=== PATIENT | male | born 1950 | race Hispanic/Latino ===

== ENCOUNTER 2016-08-10 07:58 | Emergency (ER) | payer MEDICARE ==
--- NOTE | 2016-08-10 09:10 | XRay Report ---
RIB RADIOGRAPHS WITH CHEST VIEW INDICATION: Pain, status post fall. COMPARISON: None similar at this institution. FINDINGS: Frontal chest as also AP and oblique radiographs to evaluate left ribs, 4 projections demonstrate normal cardiomediastinal silhouette. Clear lungs without effusions, CHF or pneumothorax. Possibly postsurgical right distal clavicular resection/absence with approximately 1.9 cm acromioclavicular gap. Moderate multilevel thoracic spine degenerative changes, including spurring, disc degeneration and mild scoliosis. Partially imaged lumbar bilateral pedicle rods and screws. Probable cholecystectomy clips. Osteopenia. Specifically, no definite or significantly displaced left rib fracture identified. CONCLUSION: No acute left rib or chest radiographic abnormality with various other findings, as described. Please note that some acute rib fractures may be radiographically occult. Thank you for the opportunity to participate in this patient's care.
[2016-08-10] MEDS ORDERED: TYLENOL PO ONE (09:15)
--- NOTE | 2016-08-10 09:51 | Emergency Department Report ---
ED General Adult HPI - General Chief complaint: Fall Stated complaint: POSS BROKEN RIBS Time Seen by Provider: 08/10/16 09:04 Source: patient Mode of arrival: Ambulatory Limitations: No Limitations - History of Present Illness Initial comments: PT states he was walking in his backyard 4 days ago and he tripped on a brick and fell. PT states he landed on his Left ribs. PT states he has not taken anything for the pain. PT states it "hurts like heck" PT states he lives in [facility] but he was down here today and he could not wait to be seen. PT states 2 weeks ago he was admitted to [facility] for kidney problems. PT states he was there for three days but he does not know exactly what was wrong. MD Complaint: fall - rib pain -: Sudden, days(s) (4) Location: chest (L ribs/ L armpit) Radiation: non-radiation Severity scale (0 -10): 7 Quality: sharp Consistency: constant Improves with: none Worsens with: movement Associated Symptoms: denies other symptoms. denies: fever/chills, nausea/ vomiting Treatments Prior to Arrival: none - Related Data Previous Rx's Medication Instructions Recorded Last Taken Type Acetaminophen [Acetaminophen TAB] 500 mg PO Q6HR PRN #12 tablet 08/10/16 Unknown Rx Allergies Allergy/AdvReac Type Severity Reaction Status Date / Time morphine Allergy Unknown Verified 08/10/16 08:05 ED Review of Systems ROS: Stated complaint: POSS BROKEN RIBS Other details as noted in HPI Comment: All other systems reviewed and negative Constitutional: denies: fever Respiratory: denies: shortness of breath Cardiovascular: chest pain (L rib pain ). denies: syncope Gastrointestinal: denies: abdominal pain, nausea, vomiting Musculoskeletal: back pain (chronic ) Neurological: denies: headache, weakness ED Past Medical Hx - Past Medical History Previous Medical History?: Yes Hx Hypertension: Yes - Surgical History Past Surgical History?: Yes Additional Surgical History: back and neck - Social History Smoking Status: Current Every Day Smoker Substance Use Type: None - Medications Home Medications: Home Medications Medication Instructions Recorded Confirmed Last Taken Type Acetaminophen [Acetaminophen TAB] 500 mg PO Q6HR PRN #12 tablet 08/10/16 Unknown Rx ED Physical Exam - General Limitations: No Limitations General appearance: alert, other - Head Head exam: Present: atraumatic, normal inspection - Eye Eye exam: Present: normal appearance. Absent: conjunctival injection - ENT ENT exam: Present: normal exam, normal external ear exam - Neck Neck exam: Present: normal inspection. Absent: tenderness - Respiratory Respiratory exam: Present: normal lung sounds bilaterally, chest wall tenderness (L cw ttp, + small contusion ). Absent: respiratory distress, wheezes, rales, rhonchi, stridor, accessory muscle use, decreased breath sounds - Cardiovascular Cardiovascular Exam: Present: regular rate, normal rhythm, normal heart sounds - GI/Abdominal GI/Abdominal exam: Present: soft, other (large scar to R abd ). Absent: tenderness - Extremities Exam Extremities exam: Present: normal inspection, full ROM - Back Exam Back exam: Present: normal inspection. Absent: full ROM, tenderness, CVA tenderness (R), CVA tenderness (L) - Neurological Exam Neurological exam: Present: alert, oriented X3, normal gait - Psychiatric Psychiatric exam: Present: normal affect, normal mood - Skin Skin exam: Present: warm, dry, intact, ecchymosis ED Course Vital Signs 08/10/16 08/10/16 08/10/16 08:00 09:24 10:25 Temperature 98.1 F Pulse Rate 81 Respiratory 18 16 Rate Blood Pressure 130/78 Blood Pressure 128/74 [Left] O2 Sat by Pulse 98 98 Oximetry - Reevaluation(s) Reevaluation #1: 08/10/16 09:53 PT ambulated outside. Reevaluation #2: 08/10/16 10:08 PT aware of XR result. PT declines RX for analgesics. PT states he wont take RX pain medication. PT aware he will need to use IS. PT given strict return precautions. PT has no questions at this time. - Pulse Oximetry Interpretation Digit-Finger Initial Pulse Oximetry Readin Actions Taken: none ED Medical Decision Making - Radiology Data Radiology results: report reviewed XR ribs with chest - no acute fx, osteopenia, t spine ddd, l spine hardware - Differential Diagnosis fx, contusion Critical Care Time: No Critical care attestation.: If time is entered above; I have spent that time in minutes in the direct care of this critically ill patient, excluding procedure time. ED Disposition Clinical Impression: Contusion of left chest wall Qualifiers: Encounter type: initial encounter Qualified Code(s): S20.212A - Contusion of left front wall of thorax, initial encounter Fall Qualifiers: Encounter type: initial encounter Qualified Code(s): W19.XXXA - Unspecified fall, initial encounter Disposition: TO HOME OR SELFCARE Is pt being admited?: No Does the pt Need Aspirin: No Condition: Stable Instructions: How to Use an Incentive Spirometer (ED), Rib Fracture (ED) Additional Instructions: Follow up with PCP in 3-5 days IF your pain does not improve, you may need repeat imaging to rule out occult fracture Return to the ED if you develop productive cough, fevers, chills, sob or concerns Prescriptions: Acetaminophen [Acetaminophen TAB] 500 mg PO Q6HR PRN #12 tablet PRN Reason: Pain Referrals: PRIMARY CARE, [Primary Care Provider] - 3-5 Days CAS BARFIELD MD [Staff Physician] - 3-5 Days [facility] [Outside] - 3-5 Days [facility] [Outside] - 3-5 Days Forms: Work/School Release Form(ED) Time of Disposition: :11
[2016-08-10 10:26] VITALS: BP 128/74
== END 2016-08-10 10:25 | disposition home or self-care (01) ==
LOC: ED 07:58
DX: S20.212A Contusion of left front wall of thorax, initial encounter (principal); G89.29 Other chronic pain; M54.9 Dorsalgia, unspecified; I10 Essential (primary) hypertension; F17.200 Nicotine dependence, unspecified, uncomplicated; Z98.890 Other specified postprocedural states; Z88.6 Allergy status to analgesic agent; W01.0XXA Fall on same level from slipping, tripping and stumbling without subsequent striking against object, initial encounter; Y93.01 Activity, walking, marching and hiking; Y99.8 Other external cause status; Y92.096 Garden or yard of other non-institutional residence as the place of occurrence of the external cause
CPT/HCPCS: 99283